=== PATIENT | male | born 1975 | race Caucasian/White ===

== ENCOUNTER 2021-08-04 19:47 | Emergency (ER) | payer OTHER ==
[2021-08-04 19:59] VITALS: TEMP 98.4
--- NOTE | 2021-08-04 21:50 | ED ---
General Adult HPI - General Chief complaint: Extremity Problem,Nontraumatic Stated complaint: Pain in left leg Time Seen by Provider: 08/04/21 21:19 Source: patient Mode of arrival: ambulatory Limitations: no limitations - History of Present Illness Initial comments: 46 year-old male patient presents to the emergency department today for evaluation of left leg pain. Patient states the area to the upper posterior thigh has been hurting for the last two weeks. He denies any injury to the spot. States that the pain comes on when he goes from sitting to standing and standing to sitting. States the pain resolves at rest and when he is ambulating. He does have history of back pain and sciatica but states this is different. He denies numbness or tingling to the legs. Denies saddle anesthesia or loss of bowel or bladder control. Denies fever or chills. Denies any swelling to the leg. He is concerned he may have a blood clot. - Related Data Home Medications Medication Instructions Recorded Confirmed D-Methorphan/PE/Acetaminophen 2 cap PO Q4H PRN 10/12/17 10/12/17 [Vicks Dayquil Liquicaps] Phenol [Chloraseptic] 1 spray MUCOUS MEM Q2H PRN 10/12/17 10/12/17 Previous Rx's Medication Instructions Recorded Amoxicillin 500 mg PO Q12HR #20 cap 10/12/17 Allergies Allergy/AdvReac Type Severity Reaction Status Date / Time etanercept [From Enbrel] Allergy Rash/Hives Verified 08/04/21 19:59 Review of Systems ROS Statement: Those systems with pertinent positive or pertinent negative responses have been documented in the HPI. ROS Other: All systems not noted in ROS Statement are negative. Past Medical History Additional Past Medical History / Comment(s): ankylosing spondylitis History of Any Multi-Drug Resistant Organisms: None Reported Past Surgical History: No Surgical Hx Reported Past Psychological History: No Psychological Hx Reported Past Alcohol Use History: Occasional Past Drug Use History: None Reported General Exam Limitations: no limitations General appearance: alert, in no apparent distress, other (This is a well- developed, well-nourished adult male patient in no acute distress.) Eye exam: Present: normal appearance, PERRL, EOMI. Absent: scleral icterus, conjunctival injection, periorbital swelling ENT exam: Present: normal exam, normal oropharynx Cardiovascular Exam: Present: regular rate, normal rhythm, normal heart sounds. Absent: systolic murmur, diastolic murmur, rubs, gallop, clicks GI/Abdominal exam: Present: soft, normal bowel sounds. Absent: distended, tenderness, guarding, rebound, rigid Extremities exam: Present: full ROM, normal capillary refill, other (Skin to the left leg is pink, warm, dry. Cap refill less than 3 seconds. Post tibial pulses 2+.). Absent: tenderness, pedal edema, joint swelling, calf tenderness Neurological exam: Present: alert, oriented X3, CN II-XII intact Psychiatric exam: Present: normal affect, normal mood Skin exam: Present: warm, dry, intact, normal color. Absent: rash Course Vital Signs 08/04/21 08/04/21 19:55 22:39 Temperature 98.4 F Pulse Rate 123 H 67 Respiratory 20 19 Rate Blood Pressure 156/84 159/94 O2 Sat by Pulse 98 99 Oximetry Medical Decision Making - Medical Decision Making 46-year-old male patient presented to the emergency department today for evaluation of left posterior thigh pain. Physical examination is unremarkable. Neurovascular status is intact. X-ray of the femur is negative. Ultrasound of the leg was negative for DVT. Did show evidence for left inguinal lymphadenopathy. I did discuss these findings with the patient. Be discharged from this primary care physician for recheck in 1-2 days. He is urged to discuss lymphadenopathy and have this area reevaluated. Return parameters were discussed in detail. He verbalizes understanding and agrees with this plan. My attending is Dr. Dunlap. - Radiology Data Radiology results: report reviewed, image reviewed 5 views of left knee were obtained. Report was reviewed in its entirety. Impression by Dr. Anderson shows negative left femur exam. Venous Doppler duplex of the left lower extremity was obtained. Report was reviewed in its entirety. Impression by Dr. Anderson shows no evidence of deep vein thrombosis in the left leg. Prominent left inguinal lymph node noted. Disposition Clinical Impression: Left leg pain, Inguinal lymphadenopathy Disposition: HOME SELF-CARE Condition: Good Instructions (If sedation given, give patient instructions): Lymphadenopathy (ED), Leg Pain (ED) Additional Instructions: Take Tylenol Motrin for pain control. Follow-up through primary care physician for further evaluation. Discuss enlarged lymph node. Return for any new, worsening, or concerning symptoms. Is patient prescribed a controlled substance at d/c from ED?: No Referrals: Bryanna Montilla MD [Primary Care Provider] - 1-2 days Time of Disposition: 22:56
--- NOTE | 2021-08-04 22:25 | XR ---
EXAMINATION TYPE: XR femur LT DATE OF EXAM: 08/04/2021 COMPARISON: NONE HISTORY: Leg pain TECHNIQUE: 5 views FINDINGS: I see no fracture nor dislocation. Joint spaces are normal. Hip joint and knee joint appear intact. There are no pathologic calcifications. IMPRESSION: Negative left femur exam.
[2021-08-04 22:40] VITALS: BP 159/94; PULSE 67; RESP 19
--- NOTE | 2021-08-04 22:50 | US ---
EXAMINATION TYPE: US venous doppler duplex LE LT DATE OF EXAM: 08/04/2021 10:29 PM COMPARISON: NONE CLINICAL HISTORY: Left leg pain; no injury. Pain in left leg x 2 weeks. No hx of DVT. Patient does no t take blood thinners. SIDE PERFORMED: Left TECHNIQUE: The lower extremity deep venous system is examined utilizing real time linear array sonog cathryn with graded compression, doppler sonography and color-flow sonography. VESSELS IMAGED: Common Femoral Vein Deep Femoral Vein Greater Saphenous Vein * Femoral Vein Popliteal Vein Small Saphenous Vein * Proximal Calf Veins (* superficial vessels) Left Leg: Hypoechoic area with hyperechoic center seen within the left groin: 2.0 x 1.7 x 1.2 cm. No evidence of DVT in veins imaged at this time. IMPRESSION: No evidence of deep vein thrombosis in the left leg. Prominent left inguinal lymph node noted.
[2021-08-04] MEDS ORDERED: IBUPROFEN 600 MG TAB PO STA (22:57)
== END 2021-08-04 23:05 | disposition home or self-care (01) ==
LOC: EC 19:47
DX: M79.605 Pain in left leg (principal); R59.0 Localized enlarged lymph nodes
CPT/HCPCS: 99284

== ENCOUNTER 2022-08-18 16:58 | Emergency (ER) | payer OTHER ==
[2022-08-18 17:13] VITALS: TEMP 97.7
[2022-08-18] MEDS ORDERED: CYCLOBENZAPRINE 10 MG TAB PO STA (17:55)
[2022-08-18] MEDS ORDERED: KETOROLAC 15 MG/ML 1 ML VIAL IM STA (17:55)
[2022-08-18] MEDS ORDERED: methylPREDNISolone SOD SUCCI 125 MG/2 ML VIAL IM ONE (17:55)
--- NOTE | 2022-08-18 19:00 | CT ---
EXAMINATION TYPE: CT lumbar spine wo con CT DLP: 1202.6 mGycm, Automated exposure control for dose reduction was used. DATE OF EXAM: 08/18/2022 6:25 PM COMPARISON: Lumbar radiographs 08/07/2012. CLINICAL INDICATION:Male, 47 years old with history of left lumbar pain, hx of ankylosing spondylitis , pain down left leg and back pain x1 year TECHNIQUE: Multiple axial images were obtained from the midportion of T11 through the sacroiliac kishan nts. Soft tissue and bone windows in coronal and sagittal planes were obtained and reviewed. Contrast used: none. Oral contrast used: none. FINDINGS: Alignment: There are 5 lumbar type vertebral bodies within straightening of the alignment. Bone: No evidence of fracture is identified. Mild degeneration changes L5-S1. . Mild degeneration of the sacroiliac joints right greater than left. Discs: T12-L1: No spinal canal or neural foraminal stenosis is identified. L1-L2: No spinal canal or neural foraminal stenosis is identified. L2-L3: No spinal canal or neural foraminal stenosis is identified. L3-L4: Disc bulge with facet joint arthropathy with out significant spinal canal stenosis. The neural foramen are patent. L4-L5: Disc bulge with facet joint arthropathy with out significant spinal canal stenosis. The neura l foramen are patent. L5-S1: Left central/subarticular disc protrusion/extrusion with disc material extending into the form ing left L5-S1 nerves. Other: None IMPRESSION: 1. L5-S1 left subarticular/left central disc herniation with extrusion which effaces the forming ner ves at this level. Findings likely correlate with patient's symptoms. 2. Consider MRI of the lumbar spine for further evaluation. 3. No evidence of fracture.
--- NOTE | 2022-08-18 19:19 | ED ---
Back Pain HPI - General Chief Complaint: Back Pain/Injury Stated Complaint: lt leg pain Time Seen by Provider: 08/18/22 17:29 Source: patient Limitations: no limitations - History of Present Illness Initial Comments: Patient is a 47-year-old male with a past medical history of ankylosing spondylitis who presents to the emergency department with a chief complaint of left hip pain. Patient states he was here about a year ago when he was evaluated for similar pain after possible injury. States since injury he has not had resolution of pain. He has not been further evaluated for this pain. States the pain is usually tolerable with Motrin and Tylenol however for the past couple days pain is worsened. Patient feels very uncomfortable with sitting on his hip as well as walking. He denies reinjury. Reports pain in his left lower back which radiates to his left hip into a lesser extent down the proximal left thigh. He denies numbness, tingling, and weakness of the lower extremities. Denies numbness and tingling in the groin and buttock region. Denies loss of bowel or bladder incontinence. - Related Data Home Medications Medication Instructions Recorded Confirmed D-Methorphan/PE/Acetaminophen 2 cap PO Q4H PRN 10/12/17 10/12/17 [Vicks Dayquil Liquicaps] phenoL [Chloraseptic] 1 spray MUCOUS MEM Q2H PRN 10/12/17 10/12/17 Previous Rx's Medication Instructions Recorded Amoxicillin 500 mg PO Q12HR #20 cap 10/12/17 Cyclobenzaprine [Flexeril] 10 mg PO HS PRN #7 tab 08/18/22 Ibuprofen [Motrin] 800 mg PO Q6HR PRN #30 tab 08/18/22 predniSONE 50 mg PO DAILY #5 tab 08/18/22 Allergies Allergy/AdvReac Type Severity Reaction Status Date / Time etanercept [From Enbrel] Allergy Rash/Hives Verified 08/18/22 17:13 Review of Systems ROS Statement: Those systems with pertinent positive or pertinent negative responses have been documented in the HPI. ROS Other: All systems not noted in ROS Statement are negative. Past Medical History Additional Past Medical History / Comment(s): ankylosing spondylitis History of Any Multi-Drug Resistant Organisms: None Reported Past Surgical History: No Surgical Hx Reported Past Psychological History: No Psychological Hx Reported Smoking Status: Former smoker, Vaper Past Alcohol Use History: Occasional Past Drug Use History: None Reported General Exam Limitations: no limitations General appearance: alert, in no apparent distress Respiratory exam: Present: normal lung sounds bilaterally. Absent: respiratory distress, wheezes, rales, rhonchi, stridor Cardiovascular Exam: Present: regular rate, normal rhythm, normal heart sounds. Absent: systolic murmur, diastolic murmur, rubs, gallop, clicks Extremities exam: Present: full ROM (Full strength) Left Hip exam: Present: normal inspection, full ROM, tenderness (near greater trochanter), pelvic stability. Absent: swelling, abrasion, laceration, ecchymosis, deformity, crepitus, dislocation, erythema, external rotation, internal rotation, shortening Upper Leg exam: Present: normal inspection, full ROM. Absent: tenderness, swelling Neurovascular tendon exam: Present: no vascular compromise Gait: observed and normal Back exam: Present: normal inspection, full ROM, paraspinal tenderness (left lumbar ). Absent: vertebral tenderness, rash noted Neurological exam: Present: alert, oriented X3, CN II-XII intact Psychiatric exam: Present: normal affect, normal mood Skin exam: Present: warm, dry, intact, normal color. Absent: rash Course Vital Signs 08/18/22 08/18/22 17:11 20:24 Temperature 97.7 F Pulse Rate 94 99 Respiratory 16 18 Rate Blood Pressure 145/80 143/84 O2 Sat by Pulse 96 96 Oximetry Medical Decision Making - Medical Decision Making This is a 47-year-old male presenting with left lumbar back pain with radicular symptoms. No signs or symptoms of cauda equina. Given patient's history of ankylosing spondylitis and consistent pain CT of the lumbar spine without contrast was obtained and interpreted by me which shows L5- S1 left subarticular/left central disc herniation with extrusion which effaces deformity nerve at this level. Patient given Toradol, muscle relaxer, Solu-Medrol. On teevaluation his pain has improved some. Results discussed the patient. Patient will likely benefit from prednisone prescription disc hernation with radicular symptoms. Will send him home with prednisone, Motrin, and muscle relaxers. He will be referred to Dr. Tripp for further evaluation and treatment should his symptoms not resolve. Patient given dose of Dilaudid before discharge for better pain con trol. He will not be driving home. Dr. Jolly is my attending. Disposition Clinical Impression: Herniation of lumbar intervertebral disc with radiculopathy Disposition: HOME SELF-CARE Condition: Good Instructions (If sedation given, give patient instructions): Lumbar Disc Her niation (ED) Additional Instructions: Take medication as directed. Follow-up with school psychology specialist in 1-2 days. If symptoms do not improve they will likely do further imaging with MRI. Return to the emergency department if you experience new, concerning, or worsening symptoms. Prescriptions: Cyclobenzaprine [Flexeril] 10 mg PO HS PRN #7 tab PRN Reason: Pain Ibuprofen [Motrin] 800 mg PO Q6HR PRN #30 tab PRN Reason: Pain predniSONE 50 mg PO DAILY #5 tab Is patient prescribed a controlled substance at d/c from ED?: No Referrals: None,Stated [Primary Care Provider] - 1-2 days Sunny Tripp DO [Doctor of Osteopathic Medicine] - 1-2 days
[2022-08-18] MEDS ORDERED: HYDROmorphone 1 MG/ML 1 ML SYRINGE IM STA (20:06)
[2022-08-18 20:26] VITALS: BP 143/84; PULSE 99; RESP 18
== END 2022-08-18 20:35 | disposition home or self-care (01) ==
LOC: EC 16:58
DX: M51.16 Intervertebral disc disorders with radiculopathy, lumbar region (principal); Z87.891 Personal history of nicotine dependence; Z88.8 Allergy status to other drugs, medicaments and biological substances
CPT/HCPCS: 72131; 99283; 96372 ×3; J2930; J1170; J1885

== ENCOUNTER 2023-06-07 11:18 | Emergency (ER) | payer OTHER ==
--- NOTE | 2023-06-07 11:43 | ED ---
ENT HPI - General Chief complaint: Dental/Oral Stated complaint: dental pain Time Seen by Provider: 06/07/23 11:27 Source: patient Mode of arrival: ambulatory Limitations: no limitations - History of Present Illness Initial comments: 48-year-old male presenting to the ED with a chief complaint of dental pain. Patient states over the past 2 weeks has noticed pain of the right lower tooth. Has been taking ibuprofen with moderate relief of the pain however notes that due to him not being able to make a dentist appointment until the second week of June would like pain meds and antibiotics. Denies recent worsening of his symptoms. Denies facial swelling. Denies fever. No other complaints. Additionally, patient is a pack per day smoker for the past 39 years. Has attempted to quit in the past going cold turkey and is recently cut down to half a pack per day. - Related Data Home Medications Medication Instructions Recorded Confirmed D-Methorphan/PE/Acetaminophen 2 cap PO Q4H PRN 10/12/17 10/12/17 [Vicks Dayquil Liquicaps] phenoL [Chloraseptic] 1 spray MUCOUS MEM Q2H PRN 10/12/17 10/12/17 Previous Rx's Medication Instructions Recorded Amoxicillin 500 mg PO Q12HR #20 cap 10/12/17 Cyclobenzaprine [Flexeril] 10 mg PO HS PRN #7 tab 08/18/22 Ibuprofen [Motrin] 800 mg PO Q6HR PRN #30 tab 08/18/22 predniSONE 50 mg PO DAILY #5 tab 08/18/22 Ketorolac [Toradol] 10 mg PO Q6HR PRN #12 tab 02/20/23 Amoxic-Pot Clav 875-125Mg 1 tab PO Q12HR 7 Days #14 tab 06/07/23 [Augmentin 875-125] Ibuprofen [Motrin] 600 mg PO Q8HR PRN #30 tab 06/07/23 Allergies Allergy/AdvReac Type Severity Reaction Status Date / Time etanercept [From Enbrel] Allergy Rash/Hives Verified 06/07/23 11:24 Review of Systems ROS Statement: Those systems with pertinent positive or pertinent negative responses have been documented in the HPI. ROS Other: All systems not noted in ROS Statement are negative. Past Medical History Past Medical History: Asthma Additional Past Medical History / Comment(s): ankylosing spondylitis History of Any Multi-Drug Resistant Organisms: None Reported Past Surgical History: No Surgical Hx Reported Past Psychological History: No Psychological Hx Reported Smoking Status: Former smoker, Vaper Past Alcohol Use History: Occasional Past Drug Use History: Marijuana General Exam Limitations: no limitations General appearance: alert, in no apparent distress ENT exam: Present: other (Poor dentition, cavity of the right lower premolar wit hout significant surrounding warmth, erythema, swelling, or tenderness to palpation. No significant facial or cervical swelling.) Respiratory exam: Present: wheezes (Expiratory wheezing bilaterally) Cardiovascular Exam: Present: regular rate, normal rhythm Neurological exam: Present: alert, oriented X3 Skin exam: Present: warm, dry Course Vital Signs 06/07/23 11:22 Temperature 98.4 F Pulse Rate 84 Respiratory 20 Rate Blood Pressure 135/102 O2 Sat by Pulse 99 Oximetry Medical Decision Making - Medical Decision Making Was pt. sent in by a medical professional or institution ([facility], [employer], urgent care, hospital, or care home...) When possible be specific @ -No Did you speak to anyone other than the patient for history (EMS, parent, family, police, friend...)? What history was obtained from this source @ -No Did you review nursing and triage notes (agree or disagree)? Why? @ -I reviewed and agree with nursing and triage notes Were old charts reviewed (outside hosp., previous admission, EMS record, old EKG, old radiological studies, urgent care reports/EKG's, care home records)? Report findings @ -No old charts were reviewed Differential Diagnosis (chest pain, altered mental status, abdominal pain women, abdominal pain men, vaginal bleeding, weakness, fever, dyspnea, syncope, headache, dizziness, GI bleed, back pain, seizure, CVA, palpatations, mental health, musculoskeletal)? @ -Thomas angina, ANUG, periapical/apical abscess. EKG interpreted by me (3pts min.). @ -None X-rays interpreted by me (1pt min.). @ -None done CT interpreted by me (1pt min.). @ -None done U/S interpreted by me (1pt. min.). @ -None done What testing was considered but not performed or refused? (CT, X-rays, U/S, labs)? Why? @ -None What meds were considered but not given or refused? Why? @ -None Did you discuss the management of the patient with other professionals (professionals i.e. , PA, [employer], lab, RT, psych nurse, child protective services social worker, terminal superintendent, teacher, bank operations officer, continuous pillowcase cutter)? Give summary @ -No Was smoking cessation discussed for >3mins.? @ -I discussed smoking cessation for greater than 3 minutes. The risk of smoking were discussed with the patient including but not limited to risks of cancer, stroke, coronary artery disease and COPD. Also discussed with patient were multiple methods of quitting smoking. Patient reports pack per day smoker since he was 9. States that he is tried to quit cold turkey in the past but over the past few months has now been trying to cut down is down to half a pack per day. States that he is going to establish primary care and will inquire about medication assisted treatment such as but not limited to bupropion, varenicline. Vice other methods such as a vaping. Lastly we discussed the financial cost of smoking. Was critical care preformed (if so, how long)? @ -No Were there social determinants of health that impacted care today? How? (Homelessness, low income, unemployed, alcoholism, drug addiction, transportation, low edu. Level, literacy, decrease access to med. care, snf, rehab)? @ -No Was there de-escalation of care discussed even if they declined (Discuss DNR or withdrawal of care, Hospice)? DNR status @ -No What co-morbidities impacted this encounter? (DM, HTN, Smoking, COPD, CAD, Cancer, CVA, ARF, Chemo, Hep., AIDS, mental health diagnosis, sleep apnea, morbid obesity)? @ -None Was patient admitted / discharged? Hospital course, mention meds given and route, prescriptions, significant lab abnormalities, going to OR and other pertinent info. @ -Discharge. Patient provided prescription for Augmentin and ibuprofen. Advised follow-up with dentist as scheduled. Discussed return precautions with patient who verbalizes agreement. Undiagnosed new problem with uncertain prognosis? @ -No Drug Therapy requiring intensive monitoring for toxicity (Heparin, Nitro, In sulin, Cardizem)? @ -No Were any procedures done? @ -No Diagnosis/symptom? @ -Dental cavity Acute, or Chronic, or Acute on Chronic? @ -Acute Uncomplicated (without systemic symptoms) or Complicated (systemic symptoms)? @ -Uncomplicated Side effects of treatment? @ -No Exacerbation, Progression, or Severe Exacerbation? @ -No Poses a threat to life or bodily function? How? (Chest pain, USA, MS, pneumonia, PE, COPD, DKA, ARF, appy, cholecystitis, CVA, Diverticulitis, Homicidal, Suicidal, threat to staff... and all critical care pts) @ -No Disposition Clinical Impression: Dental caries, Encounter for smoking cessation counseling Disposition: HOME SELF-CARE Condition: Good Instructions (If sedation given, give patient instructions): Toothache (ED), How to Stop Smoking (ED), Electronic Cigarettes and Your Health (ED) Prescriptions: Amoxic-Pot Clav 875-125Mg [Augmentin 875-125] 1 tab PO Q12HR 7 Days #14 tab Ibuprofen [Motrin] 600 mg PO Q8HR PRN #30 tab PRN Reason: Pain Is patient prescribed a controlled substance at d/c from ED?: No Referrals: Trevin Penny MD [Primary Care Provider] - 1-2 days Time of Disposition: 11:48
[2023-06-07 12:07] VITALS: BP 132/90; PULSE 68; RESP 18; TEMP 98.6
== END 2023-06-07 12:10 | disposition home or self-care (01) ==
LOC: EC 11:18
DX: Z71.6 Tobacco abuse counseling (principal); K02.9 Dental caries, unspecified; J45.909 Unspecified asthma, uncomplicated; F17.290 Nicotine dependence, other tobacco product, uncomplicated; F12.90 Cannabis use, unspecified, uncomplicated; Z88.6 Allergy status to analgesic agent
CPT/HCPCS: 99282; 99406

== ENCOUNTER 2023-12-18 12:09 | Emergency (ER) | payer OTHER ==
--- NOTE | 2023-12-18 12:17 | ED ---
General Adult HPI - General Stated complaint: Abscess of mouth Time Seen by Provider: 12/18/23 12:14 Source: patient, RN notes reviewed Mode of arrival: ambulatory Limitations: no limitations - History of Present Illness Initial comments: 48-year-old male presents emergency department complaint of dental pain. Patient states he has swollen right side of his face. He states he just started he states he had symptoms some like this last year he states he has been seeing a dentist because of ongoing issues states that they have been doing some descaling. Patient denies any fevers or chills no difficulty swallowing denies other associated symptoms. - Related Data Home Medications Medication Instructions Recorded Confirmed D-Methorphan/PE/Acetaminophen 2 cap PO Q4H PRN 10/12/17 10/12/17 [Vicks Dayquil Liquicaps] phenoL [Chloraseptic] 1 spray MUCOUS MEM Q2H PRN 10/12/17 10/12/17 Previous Rx's Medication Instructions Recorded Amoxicillin 500 mg PO Q12HR #20 cap 10/12/17 Cyclobenzaprine [Flexeril] 10 mg PO HS PRN #7 tab 08/18/22 Ibuprofen [Motrin] 800 mg PO Q6HR PRN #30 tab 08/18/22 predniSONE 50 mg PO DAILY #5 tab 08/18/22 Ketorolac [Toradol] 10 mg PO Q6HR PRN #12 tab 02/20/23 Amoxic-Pot Clav 875-125Mg 1 tab PO Q12HR 7 Days #14 tab 06/07/23 [Augmentin 875-125] Ibuprofen [Motrin] 600 mg PO Q8HR PRN #30 tab 06/07/23 Amoxic-Pot Clav 875-125Mg 1 tab PO Q12HR #20 tab 12/18/23 [Augmentin 875-125] Ibuprofen [Motrin] 600 mg PO Q8HR PRN #20 tab 12/18/23 Allergies Allergy/AdvReac Type Severity Reaction Status Date / Time etanercept [From Enbrel] Allergy Rash/Hives Verified 06/07/23 11:24 Review of Systems ROS Statement: Those systems with pertinent positive or pertinent negative responses have been documented in the HPI. ROS Other: All systems not noted in ROS Statement are negative. Past Medical History Past Medical History: Asthma Additional Past Medical History / Comment(s): ankylosing spondylitis History of Any Multi-Drug Resistant Organisms: None Reported Past Surgical History: No Surgical Hx Reported Past Psychological History: No Psychological Hx Reported Smoking Status: Former smoker, Vaper Past Alcohol Use History: Occasional Past Drug Use History: Marijuana General Exam Limitations: no limitations General appearance: alert, in no apparent distress Head exam: Present: atraumatic, normocephalic, normal inspection Eye exam: Present: normal appearance, PERRL, EOMI. Absent: scleral icterus, conjunctival injection, periorbital swelling ENT exam: Present: mucous membranes moist, TM's normal bilaterally. Absent: normal oropharynx (Swelling at right mandibular region, no drainable abscess mild gumline erythema) Neck exam: Present: normal inspection, full ROM. Absent: tenderness, meningismus, lymphadenopathy Respiratory exam: Present: normal lung sounds bilaterally. Absent: respiratory distress, wheezes, rales, rhonchi, stridor Cardiovascular Exam: Present: regular rate, normal rhythm, normal heart sounds. Absent: systolic murmur, diastolic murmur, rubs, gallop, clicks Medical Decision Making - Medical Decision Making Was pt. sent in by a medical professional or institution (, PA, FIRE CHIEF, urgent care, hospital, or penitentiary...) When possible be specific @ -No Did you speak to anyone other than the patient for history (EMS, parent, family, police, friend...)? What history was obtained from this source @ -No Did you review nursing and triage notes (agree or disagree)? Why? @ -I reviewed and agree with nursing and triage notes Were old charts reviewed (outside hosp., previous admission, EMS record, old EKG, old radiological studies, urgent care reports/EKG's, penitentiary records)? Report findings @ -No old charts were reviewed Differential Diagnosis (chest pain, altered mental status, abdominal pain women, abdominal pain men, vaginal bleeding, weakness, fever, dyspnea, syncope, headache, dizziness, GI bleed, back pain, seizure, CVA, palpatations, mental health, musculoskeletal)? @ -Dental abscess, dental infection, tooth ache EKG interpreted by me (3pts min.). @ -[None X-rays interpreted by me (1pt min.). @ -None done CT interpreted by me (1pt min.). @ -None done U/S interpreted by me (1pt. min.). @ -None done What testing was considered but not performed or refused? (CT, X-rays, U/S, labs)? Why? @ -None What meds were considered but not given or refused? Why? @ -None Did you discuss the management of the patient with other professionals (professionals i.e. , PA, FIRE CHIEF, lab, RT, psych nurse, social sciences lecturer, learning and development specialist, teacher, lead security officer, rn case management)? Give summary @ -No Was smoking cessation discussed for >3mins.? @ -No Was critical care preformed (if so, how long)? @ -No Were there social determinants of health that impacted care today? How? (Homelessness, low income, unemployed, alcoholism, drug addiction, transportation, low edu. Level, literacy, decrease access to med. care, nursing home, rehab)? @ -No Was there de-escalation of care discussed even if they declined (Discuss DNR or withdrawal of care, Hospice)? DNR status @ -No What co-morbidities impacted this encounter? (DM, HTN, Smoking, COPD, CAD, Canc er, CVA, ARF, Chemo, Hep., AIDS, mental health diagnosis, sleep apnea, morbid obesity)? @ -None Was patient admitted / discharged? Hospital course, mention meds given and route, prescriptions, significant lab abnormalities, going to OR and other pertinent info. @ -Discharge patient has right-sided dental infection, no drainable abscess. Patient was started on Augmentin will be discharged with analgesics return parameters dena. Undiagnosed new problem with uncertain prognosis? @ -No Drug Therapy requiring intensive monitoring for toxicity (Heparin, Nitro, Insulin, Cardizem)? @ -No Were any procedures done? @ -No Diagnosis/symptom? @ -Dental abscess Acute, or Chronic, or Acute on Chronic? @ -Acute Uncomplicated (without systemic symptoms) or Complicated (systemic symptoms)? @ -Uncomplicated Side effects of treatment? @ -No Exacerbation, Progression, or Severe Exacerbation? @ -No Poses a threat to life or bodily function? How? (Chest pain, [place], [place], pneumonia, PE, COPD, DKA, ARF, appy, cholecystitis, CVA, Diverticulitis, Homicidal, Suicidal, threat to staff... and all critical care pts) @ -No Disposition Clinical Impression: Dental abscess Disposition: HOME SELF-CARE Condition: Stable Instructions (If sedation given, give patient instructions): Dental Abscess (ED ) Additional Instructions: Please return to the Emergency Department if symptoms worsen or any other concerns. Prescriptions: Amoxic-Pot Clav 875-125Mg [Augmentin 875-125] 1 tab PO Q12HR #20 tab Ibuprofen [Motrin] 600 mg PO Q8HR PRN #20 tab PRN Reason: Pain Is patient prescribed a controlled substance at d/c from ED?: No Referrals: Damaris Dial [Primary Care Provider] - 1-2 days Time of Disposition: 12:17
[2023-12-18 13:44] VITALS: BP 139/88; PULSE 70; RESP 18; TEMP 98.5
[2023-12-18] MEDS: ACET/COD 300 MG/30 MG STARTER PACK 6 TAB BTL PO STA (13:52)
== END 2023-12-18 13:54 | disposition home or self-care (01) ==
LOC: EC 12:09
DX: K04.7 Periapical abscess without sinus (principal); J45.909 Unspecified asthma, uncomplicated; F17.290 Nicotine dependence, other tobacco product, uncomplicated; F12.90 Cannabis use, unspecified, uncomplicated; Z88.8 Allergy status to other drugs, medicaments and biological substances
CPT/HCPCS: 99282

== ENCOUNTER 2023-12-20 21:30 | Emergency (ER) | payer OTHER ==
[2023-12-20 22:07] VITALS: RESP 16
[2023-12-20] MEDS: diphenhydrAMINE 50 MG/ML 1 ML VIAL IM STA (22:28)
[2023-12-20] MEDS: methylPREDNISolone SOD SUCCI 125 MG/2 ML VIAL IM ONE (22:29)
[2023-12-20] MEDS: FAMOTIDINE 20 MG TAB PO STA (22:30)
--- NOTE | 2023-12-20 23:08 | ED ---
ENT HPI - General Chief complaint: Dental/Oral Stated complaint: dental pain Time Seen by Provider: 12/20/23 21:40 Source: patient Mode of arrival: ambulatory Limitations: no limitations - History of Present Illness Initial comments: 48-year-old male presenting with chief complaint of rash. Patient was recently seen in our ER for a dental abscess and was started on Augmentin. Since then patient has developed a painful rash to his chest. He states that the swelling of his abscess is decreasing. He has an upcoming appointment with his dentist. No difficulty swallowing. Patient does have asthma, no increased difficulty breathing. No fevers. No voice changes. No nausea vomiting or abdominal pain. No chest pain. - Related Data Home Medications Medication Instructions Recorded Confirmed D-Methorphan/PE/Acetaminophen 2 cap PO Q4H PRN 10/12/17 10/12/17 [Vicks Dayquil Liquicaps] phenoL [Chloraseptic] 1 spray MUCOUS MEM Q2H PRN 10/12/17 10/12/17 Previous Rx's Medication Instructions Recorded Amoxicillin 500 mg PO Q12HR #20 cap 10/12/17 Cyclobenzaprine [Flexeril] 10 mg PO HS PRN #7 tab 08/18/22 Ibuprofen [Motrin] 800 mg PO Q6HR PRN #30 tab 08/18/22 predniSONE 50 mg PO DAILY #5 tab 08/18/22 Ketorolac [Toradol] 10 mg PO Q6HR PRN #12 tab 02/20/23 Amoxic-Pot Clav 875-125Mg 1 tab PO Q12HR 7 Days #14 tab 06/07/23 [Augmentin 875-125] Ibuprofen [Motrin] 600 mg PO Q8HR PRN #30 tab 06/07/23 Amoxic-Pot Clav 875-125Mg 1 tab PO Q12HR #20 tab 12/18/23 [Augmentin 875-125] Ibuprofen [Motrin] 600 mg PO Q8HR PRN #20 tab 12/18/23 Clindamycin [Cleocin] 450 mg PO TID 7 Days #63 cap 12/20/23 Allergies Allergy/AdvReac Type Severity Reaction Status Date / Time amoxicillin [From Augmentin] Allergy Swelling Verified 12/20/23 23:15 clavulanic acid Allergy Swelling Verified 12/20/23 23:15 [From Augmentin] etanercept [From Enbrel] Allergy Rash/Hives Verified 12/18/23 13:44 Review of Systems ROS Statement: Those systems with pertinent positive or pertinent negative responses have been documented in the HPI. ROS Other: All systems not noted in ROS Statement are negative. Past Medical History Past Medical History: Asthma Additional Past Medical History / Comment(s): ankylosing spondylitis History of Any Multi-Drug Resistant Organisms: None Reported Past Surgical History: No Surgical Hx Reported Past Psychological History: No Psychological Hx Reported Smoking Status: Former smoker, Vaper Past Alcohol Use History: Occasional Past Drug Use History: Marijuana General Exam Limitations: no limitations General appearance: alert, in no apparent distress Head exam: Present: atraumatic, normocephalic Eye exam: Present: normal appearance Expanded Mouth exam: Present: tongue normal. Absent: drooling, trismus, muffled voice Teeth exam: Present: dental caries, gingival enlargement Neck exam: Present: other (No brawny induration). Absent: meningismus Respiratory exam: Present: wheezes. Absent: respiratory distress, rales, rhonchi, stridor Cardiovascular Exam: Present: regular rate, normal rhythm, normal heart sounds. Absent: systolic murmur, diastolic murmur, rubs, gallop, clicks Neurological exam: Present: alert, oriented X3 Psychiatric exam: Present: normal mood Skin exam: Present: warm, dry Course Vital Signs 12/20/23 12/20/23 21:34 23:11 Temperature 98.1 F 98.2 F Pulse Rate 80 65 Respiratory 16 16 Rate Blood Pressure 134/93 123/81 O2 Sat by Pulse 97 94 L Oximetry Medical Decision Making - Medical Decision Making Was pt. sent in by a medical professional or institution (, PA, CORNER BRACE BLOCK MACHINE OPERATOR, urgent care, hospital, or senior living...) When possible be specific @ -No Did you speak to anyone other than the patient for history (EMS, parent, family, police, friend...)? What history was obtained from this source @ -No Did you review nursing and triage notes (agree or disagree)? Why? @ -I reviewed and agree with nursing and triage notes Were old charts reviewed (outside hosp., previous admission, EMS record, old EKG, old radiological studies, urgent care reports/EKG's, senior living records)? Report findings @ -No old charts were reviewed Differential Diagnosis (chest pain, altered mental status, abdominal pain women, abdominal pain men, vaginal bleeding, weakness, fever, dyspnea, syncope, headache, dizziness, GI bleed, back pain, seizure, CVA, palpatations, mental health, musculoskeletal)? @ -Differential includes allergic reaction, cellulitis, Moran-Samm syndrome, this is not an all-inclusive list EKG interpreted by me (3pts min.). @ -As above X-rays interpreted by me (1pt min.). @ -None done CT interpreted by me (1pt min.). @ -None done U/S interpreted by me (1pt. min.). @ -None done What testing was considered but not performed or refused? (CT, X-rays, U/S, labs)? Why? @ -None What meds were considered but not given or refused? Why? @ -None Did you discuss the management of the patient with other professionals (professionals i.e. , PA, CORNER BRACE BLOCK MACHINE OPERATOR, lab, RT, psych nurse, aids social worker, film painter, teacher, aeronautical engineering officer, binder caser)? Give summary @ -No Was smoking cessation discussed for >3mins.? @ -No Was critical care preformed (if so, how long)? @ -No Were there social determinants of health that impacted care today? How? (Homelessness, low income, unemployed, alcoholism, drug addiction, transportation, low edu. Level, literacy, decrease access to med. care, alf, rehab)? @ -No Was there de-escalation of care discussed even if they declined (Discuss DNR or withdrawal of care, Hospice)? DNR status @ -No What co-morbidities impacted this encounter? (DM, HTN, Smoking, COPD, CAD, Cancer, CVA, ARF, Chemo, Hep., AIDS, mental health diagnosis, sleep apnea, morbid obesity)? @ -None Was patient admitted / discharged? Hospital course, mention meds given and route, prescriptions, significant lab abnormalities, going to OR and other pertinent info. @ -48-year-old male presenting with chief complaint of rash. Patient started taking Augmentin for his dental abscess about 2 days ago. Today he developed a red and painful rash to the chest. No signs of angioedema. He has mild wheezes, he has history of asthma. There is swelling to the right lower jaw consistent with dental abscess, patient reports that this is significantly improved from prior to antibiotics. No brawny induration. No muffled voice or drooling. Patient is given Solu-Medrol, Benadryl, and Pepcid. On reassessment he is resting comfortably, states that the discomfort of his rash seems to be decreasing. Instructed to switch from Augmentin to clindamycin. Follow-up with your dentist at scheduled appointment. Discharged home. Follow-up with PCP. Report back to ER with any new or worsening symptoms. Discussed return parameters and answered all questions. Patient conveyed verbal understanding and agreed to the plan. I discussed this case in detail with my attending Undiagnosed new problem with uncertain prognosis? @ -No Drug Therapy requiring intensive monitoring for toxicity (Heparin, Nitro, Insulin, Cardizem)? @ -No Were any procedures done? @ -No Diagnosis/symptom? @ -Allergic reaction, dental abscess Acute, or Chronic, or Acute on Chronic? @ -Acute Uncomplicated (without systemic symptoms) or Complicated (systemic symptoms)? @ -Uncomplicated Side effects of treatment? @ -No Exacerbation, Progression, or Severe Exacerbation? @ -No Poses a threat to life or bodily function? How? (Chest pain, [place], [place], pneumonia, PE, COPD, DKA, ARF, appy, cholecystitis, CVA, Diverticulitis, Homicidal, Suicida l, threat to staff... and all critical care pts) @ -Low likelihood Disposition Clinical Impression: Dental abscess, Allergic reaction Disposition: HOME SELF-CARE Condition: Good Instructions (If sedation given, give patient instructions): Dental Abscess (ED), General Allergic Reaction (ED) Additional Instructions: Follow-up with your dentist. Report back to ER with any new or worsening symptoms. Prescriptions: Clindamycin [Cleocin] 450 mg PO TID 7 Days #63 cap Is patient prescribed a controlled substance at d/c from ED?: No Referrals: Damaris Dial [Primary Care Provider] - 1-2 days Time of Disposition: 23:07
[2023-12-20 23:40] VITALS: BP 123/81; PULSE 65; TEMP 98.2
== END 2023-12-20 23:14 | disposition home or self-care (01) ==
LOC: EC 21:30
DX: K04.7 Periapical abscess without sinus (principal); T78.40XA Allergy, unspecified, initial encounter; J45.909 Unspecified asthma, uncomplicated; F17.290 Nicotine dependence, other tobacco product, uncomplicated; F12.90 Cannabis use, unspecified, uncomplicated; Z88.0 Allergy status to penicillin; Z88.8 Allergy status to other drugs, medicaments and biological substances
CPT/HCPCS: 99283 ×2; 96372 ×3; J1200; J2930

== ENCOUNTER 2024-06-17 08:50 | Emergency (ER) | payer OTHER ==
[2024-06-17 08:55] VITALS: RESP 18
--- NOTE | 2024-06-17 09:19 | ED ---
Recheck HPI - General Chief Complaint: Recheck/Abnormal Lab/Rx Stated Complaint: Meds/Mental Health Time Seen by Provider: 06/17/24 09:17 Source: patient, RN notes reviewed Mode of arrival: ambulatory Limitations: no limitations - History of Present Illness Initial Comments: 49-year-old male presented to the ER patient refill. Patient states he forgot t o call [facility] to have his Cymbalta refilled prior to the hol weekend. He states he has 1 pill left. Patient denies any other complaints at this time. Denies any SI or HI. - Related Data Home Medications Medication Instructions Recorded Confirmed D-Methorphan/PE/Acetaminophen 2 cap PO Q4H PRN 10/12/17 10/12/17 [Vicks Dayquil Liquicaps] phenoL [Chloraseptic] 1 spray MUCOUS MEM Q2H PRN 10/12/17 10/12/17 Previous Rx's Medication Instructions Recorded Amoxicillin 500 mg PO Q12HR #20 cap 10/12/17 Cyclobenzaprine [Flexeril] 10 mg PO HS PRN #7 tab 08/18/22 Ibuprofen [Motrin] 800 mg PO Q6HR PRN #30 tab 08/18/22 predniSONE 50 mg PO DAILY #5 tab 08/18/22 Ketorolac [Toradol] 10 mg PO Q6HR PRN #12 tab 02/20/23 Amoxic-Pot Clav 875-125Mg 1 tab PO Q12HR 7 Days #14 tab 06/07/23 [Augmentin 875-125] Ibuprofen [Motrin] 600 mg PO Q8HR PRN #30 tab 06/07/23 Amoxic-Pot Clav 875-125Mg 1 tab PO Q12HR #20 tab 12/18/23 [Augmentin 875-125] Ibuprofen [Motrin] 600 mg PO Q8HR PRN #20 tab 12/18/23 Clindamycin [Cleocin] 450 mg PO TID 7 Days #63 cap 12/20/23 DULoxetine HCL [Cymbalta] 30 mg PO DAILY #30 cap 06/17/24 Allergies Allergy/AdvReac Type Severity Reaction Status Date / Time amoxicillin [From Augmentin] Allergy Swelling Verified 06/17/24 08:55 clavulanic acid Allergy Swelling Verified 06/17/24 08:55 [From Augmentin] etanercept [From Enbrel] Allergy Rash/Hives Verified 06/17/24 08:55 Review of Systems ROS Statement: Those systems with pertinent positive or pertinent negative responses have been documented in the HPI. ROS Other: All systems not noted in ROS Statement are negative. Past Medical History Past Medical History: Asthma Additional Past Medical History / Comment(s): ankylosing spondylitis History of Any Multi-Drug Resistant Organisms: None Reported Past Surgical History: No Surgical Hx Reported Past Psychological History: No Psychological Hx Reported Smoking Status: Former smoker, Vaper Past Alcohol Use History: Occasional Past Drug Use History: Marijuana General Exam Limitations: no limitations General appearance: alert, in no apparent distress Respiratory exam: Present: normal lung sounds bilaterally. Absent: respiratory distress, wheezes, rales, rhonchi, stridor Cardiovascular Exam: Present: regular rate, normal rhythm, normal heart sounds. Absent: systolic murmur, diastolic murmur, rubs, gallop, clicks Extremities exam: Present: normal inspection, full ROM, normal capillary refill. Absent: tenderness, pedal edema, joint swelling, calf tenderness Neurological exam: Present: alert, oriented X3, CN II-XII intact Psychiatric exam: Present: normal affect, normal mood Skin exam: Present: warm, dry, intact, normal color. Absent: rash Course Vital Signs 06/17/24 08:53 Temperature 98.1 F Pulse Rate 94 Respiratory 18 Rate Blood Pressure 143/81 O2 Sat by Pulse 99 Oximetry Medical Decision Making - Medical Decision Making Was pt. sent in by a medical professional or institution (, PA, MACHINE VENEER REPAIRER, urgent care, hospital, or residential...) When possible be specific @ -No Did you speak to anyone other than the patient for history (EMS, parent, family, police, friend...)? What history was obtained from this source @ -No Did you review nursing and triage notes (agree or disagree)? Why? @ -I reviewed and agree with nursing and triage notes Were old charts reviewed (outside hosp., previous admission, EMS record, old EKG, old radiological studies, urgent care reports/EKG's, residential records)? Report findings @ -No old charts were reviewed Differential Diagnosis (chest pain, altered mental status, abdominal pain women, abdominal pain men, vaginal bleeding, weakness, fever, dyspnea, syncope, headache, dizziness, GI bleed, back pain, seizure, CVA, palpatations, mental health, musculoskeletal)? @ -Differential Mental Health: Depression, anxiety, bipolar, psychosis, schizophrenia, borderline personality, situational depression, adjustment disorder, behavioral disorder, brain tumor, malingering, substance abuse, encephalopathy, medication reaction, dementia, hypothyroidism, degenerative neurologic disorder, lupus.... This is not meant to be all-inclusive list EKG interpreted by me (3pts min.). @ -None X-rays interpreted by me (1pt min.). @ -None done CT interpreted by me (1pt min.). @ -None done U/S interpreted by me (1pt. min.). @ -None done What testing was considered but not performed or refused? (CT, X-rays, U/S, labs)? Why? @ -None What meds were considered but not given or refused? Why? @ -None Did you discuss the management of the patient with other professionals (professionals i.e. , PA, MACHINE VENEER REPAIRER, lab, RT, psych nurse, certified social workers in health care, sales representative cash registers, teacher, state wildlife officer, ed case manager)? Give summary @ -No Was smoking cessation discussed for >3mins.? @ -No Was critical care preformed (if so, how long)? @ -No Were there social determinants of health that impacted care today? How? (Homelessness, low income, unemployed, alcoholism, drug addiction, transportation, low edu. Level, literacy, decrease access to med. care, care home, rehab)? @ -No Was there de-escalation of care discussed even if they declined (Discuss DNR or withdrawal of care, Hospice)? DNR status @ -No What co-morbidities impacted this encounter? (DM, HTN, Smoking, COPD, CAD, Cancer, CVA, ARF, Chemo, Hep., AIDS, mental health diagnosis, sleep apnea, morbid obesity)? @ -None Was patient admitted / discharged? Hospital course, mention meds given and route, prescriptions, significant lab abnormalities, going to OR and other pertinent info. @ -Discharge. 49-year-old male presented to the ER for medication refill. History and physical exam completed. Vitals within normal limits. Patient no signs of acute distress and denying any acute complaints at this time. Cymbalta refilled. I advise close follow-up with PCP and [facility]. Patient is agreeable. Patient discharged stable condition. Case discussed with ED attending, . Undiagnosed new problem with uncertain prognosis? @ -No Drug Therapy requiring intensive monitoring for toxicity (Heparin, Nitro, Insulin, Cardizem)? @ -No Were any procedures done? @ -No Diagnosis/symptom? @ -Medication Refill Acute, or Chronic, or Acute on Chronic? @ -Acute Uncomplicated (without systemic symptoms) or Complicated (systemic symptoms)? @ -Uncomplicated Side effects of treatment? @ -No Exacerbation, Progression, or Severe Exacerbation? @ -No Poses a threat to life or bodily function? How? (Chest pain, [place], [place], pneumonia, PE, COPD, DKA, ARF, appy, cholecystitis, CVA, Diverticulitis, Homicidal, Suicidal, threat to staff... and all critical care pts) @ -No Disposition Clinical Impression: Encounter for medication refill Disposition: HOME SELF-CARE Condition: Stable Additional Instructions: Follow-up with PCP and [facility]. Return to the ER for any new or worsening symptoms. Prescriptions: DULoxetine HCL [Cymbalta] 30 mg PO DAILY #30 cap Is patient prescribed a controlled substance at d/c from ED?: No Referrals: Amandeep Méndez MD [Primary Care Provider] - 1-2 days Time of Disposition: 09:19
[2024-06-17 09:35] VITALS: BP 136/78; PULSE 76; TEMP 97.9
== END 2024-06-17 09:36 | disposition home or self-care (01) ==
LOC: EC 08:50
DX: Z76.0 Encounter for issue of repeat prescription (principal); Z79.899 Other long term (current) drug therapy; Z87.891 Personal history of nicotine dependence; Z88.0 Allergy status to penicillin; Z88.1 Allergy status to other antibiotic agents; Z88.8 Allergy status to other drugs, medicaments and biological substances
CPT/HCPCS: 99281